=== PATIENT | female | born 1975 | race Caucasian/White ===

== ENCOUNTER 2025-06-05 23:50 | Emergency (ER) | payer OTHER ==
[~2025-06-05] VITALS: Ht 167.6 cm; Wt 95.9 kg
[2025-06-05 23:58] VITALS: BP 188/110; PULSE 97; RESP 22; TEMP 98.2; O2SAT 99
== END 2025-06-06 02:30 | disposition left against medical advice (07) ==
LOC: EMS 23:53
DX: I10 Essential (primary) hypertension (principal); Z53.21 Procedure and treatment not carried out due to patient leaving prior to being seen by health care provider
CPT/HCPCS: 93005; 99283